=== PATIENT | female | born 1950 | race African-American/Black ===

== ENCOUNTER → 2018-08-02 | Day surgery (SDC) | payer BC ==
[~2018-08-02] MED LIST: ALBU2.5V8 IH; AMLO5TAB10 PO; ASPI-630 PO; BUDE10.2 IH; FLUC100T4 PO; IV RINGERS,LACTATED 1000ML 1,000 ML IV SCH; MELO15TA23 PO; POTA20TA82 PO; PROPOFOL 20 ML IV ONE; TRIA1CAP3 PO
[2018-08-02 14:21] VITALS: BP 170/94
--- NOTE | 2018-08-02 19:40 | CONS ---
DATE OF CONSULTATION: 08/02/2018 REASON FOR CONSULTATION: History of colonic polyps and positive Cologuard test. HISTORY OF PRESENT ILLNESS: A 67-year-old -[place] female with past medical history significant for asthma, hypertension, osteoarthritis, is seen in for further evaluation for positive Cologuard test. Bowel habits have been regular without diarrhea or constipation. There has been no melena or hematochezia. Weight and appetite are stable. She is otherwise without additional complaints. PAST MEDICAL HISTORY: Diabetes, colonic polyps, diverticulosis, hypertension, hyperlipidemia and asthma. ALLERGIES: None. MEDICATIONS: Include albuterol, amlodipine, aspirin, budesonide, fluconazole, meloxicam, potassium and triamterene/hydrochlorothiazide. FAMILY HISTORY: Noncontributory. SOCIAL HISTORY: She is nonsmoker and a light drinker. PAST SURGICAL HISTORY: 3, para 3. REVIEW OF SYSTEMS: Per records. PHYSICAL EXAMINATION: GENERAL: Reveals a well-nourished, well-developed -[place] female who is alert and cooperative, in no acute distress. VITAL SIGNS: Pulse 80, respiratory rate 20, blood pressure is 130/70. HEENT: Reveals normocephalic and atraumatic head. Pupils and extraocular muscles are not tested. Sclerae anicteric. NECK: Supple. LUNGS: Clear. CARDIOVASCULAR: Reveals an S1, S2 without S3, S4 or appreciable murmur. ABDOMEN: Reveals soft abdomen, normal bowel sounds without appreciable hepatosplenomegaly. EXTREMITIES: Reveals no cyanosis, clubbing, edema. IMPRESSION: Positive Cologuard test with a history of colonic polyps. Surveillance colonoscopy is recommended. Risks and benefits of the procedure have been discussed with the patient and is willing to proceed at this time. CORKY BROWNE MD DR: KATHI/chrissy JOB#: [id number] / [id number]
== END ==
LOC: ENDOS 13:00
PROVIDERS: ATTEND Internal Medicine Gastroenterology
DX: K57.30 Diverticulosis of large intestine without perforation or abscess without bleeding (principal); K64.0 First degree hemorrhoids; I10 Essential (primary) hypertension; E11.9 Type 2 diabetes mellitus without complications; E78.5 Hyperlipidemia, unspecified; J44.9 Chronic obstructive pulmonary disease, unspecified; F17.210 Nicotine dependence, cigarettes, uncomplicated; M19.90 Unspecified osteoarthritis, unspecified site; Z86.010 Personal history of colon polyps; Z72.89 Other problems related to lifestyle; Z90.710 Acquired absence of both cervix and uterus; Z98.51 Tubal ligation status; Z79.899 Other long term (current) drug therapy; Z79.82 Long term (current) use of aspirin; Z98.890 Other specified postprocedural states
CPT/HCPCS: 45378; J2704